=== PATIENT | male | born 1995 | race Two or more races ===

== ENCOUNTER → 2024-06-20 | Outpatient (CLI) | payer MEDICAID ==
--- NOTE | 2024-07-02 16:27 | DVHNC2 ---
Procedure - June 20, 2024 Pulmonary function test interpretation: Very severe obstructive ventilatory defect. No significant bronchodilator response. FEV1 improved by 40 mL. FVC improved by 60 mL. Patient unable to do nitrogen washout technique to obtain total lung capacity. Moderate reduction in diffusion capacity, not corrected for patient's hemoglobin. 41% of predicted. MANOLO MOMIN RESIDENT July 02, 2024 16:27
== END | disposition home or self-care (01) ==
LOC: RT 08:29
PROVIDERS: ATTEND Internal Medicine Pulmonary Disease
DX: R06.09 Other forms of dyspnea (principal)
CPT/HCPCS: 94060; 94727; 94729